=== PATIENT | male | born 1980 | race Caucasian/White ===

== ENCOUNTER 2017-10-14 20:51 | Emergency (ER) | payer BC ==
[~2017-10-14] VITALS: Ht 180.3 cm; Wt 68.3 kg
[2017-10-14 20:58] VITALS: TEMP 36.7; Ht 180.3 cm; Wt 68.3 kg
[2017-10-14] MEDS ORDERED: CYCLOBENZAPRINE HCL 10 MG TAB PO STA (21:38)
[2017-10-14] MEDS ORDERED: OXYCODONE HCL IR 5 MG TAB (IMMEDIATE RELEASE) PO STA (21:38)
--- NOTE | 2017-10-14 22:28 | DIAGNOSTIC IMAGING REPORT ---
LUMBAR SPINE 5 VIEWS HISTORY: Lower back midline tenderness, eval fx, disc herniation COMPARISON: None. FINDINGS: There is no fracture. No subluxation. Mild levoscoliosis of the lumbar spine. The sacrum is intact. Surgical clips are seen throughout the abdomen. L5 is demonstrated to be a transitional vertebra with partial sacralization and a hypoplastic L5-S1 disc space. There are also hypoplastic T12 ribs.. Minimal anterior wedging at T11 is likely within the range normal limits. IMPRESSION: No fracture or subluxation within the lumbar spine. Electronically signed by: Venancio Magallon M.D. 10/14/2017 10:26 PM Dictated Date/Time: 10/14/2017 10:24 PM
--- NOTE | 2017-10-14 22:51 | EMERGENCY ROOM VISIT NOTE ---
ED Visit Note First contact with patient: 21:06 CHIEF COMPLAINT: Low back pain HISTORY OF PRESENT ILLNESS: This is a 37-year-old male who presents to the emergency department with complaint of low back pain. The patient states he has had chronic back pain for at least 3 years and has been seen by a spine surgeon in the past for injections and physical therapy. He states that he has had increased pain in his back for the past one month, the pain came on gradually, it is now constant and worse with movements, and he has pain that radiates into his right leg with tingling for the past month. He rates the pain as 8/10. He has been taking Tylenol without relief. He states he is unable to take any NSAIDs due to having only one kidney. Denies any bowel or bladder difficulties. There has been no leg numbness or weakness. No recent direct trauma. No vomiting or abdominal pain. No fevers or chills. Patient states that he has been seen by a business applications specialist in [place] in the past and has had spinal injections as well as physical therapy. He does note that he has an appointment with his PCP tomorrow and has also need an appointment with orthopedic spine to get established here in 2 weeks. REVIEW OF SYSTEMS: A complete 10 point review of systems was reviewed with the patient with pertinent positives and negatives as per history of present illness. All else were negative. PMH: Chronic back pain. 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 He is otherwise healthy with no significant medical or surgical history. SOCIAL HISTORY: Patient lives at home. Current every day smoker. He denies alcohol use and illicit drug use, denies IV drug abuse. PHYSICAL EXAM: Vital Signs: Reviewed Nurse's notes. CONSTITUTIONAL: Pleasant and cooperative. No acute distress, but appears uncomfortable and in pain throughout exam. Slow to move. HEENT: Normocephalic, atraumatic. Pupils equal, round and reactive to light, EOMI. TMs normal. Pharynx normal. NECK: Supple, full active range of motion without discomfort. RESPIRATORY: Clear to auscultation bilaterally with no wheezing, crackles, rhonchi or stridor. Equal expansion bilaterally. CARDIOVASCULAR: Regular rate and rhythm with no murmurs, rubs or gallops. Normal peripheral perfusion. No edema. GASTROINTESTINAL: Soft, nontender, nondistended. No palpable masses or HSM. Bowel sounds present in all quadrants. BACK: Tenderness to palpation of the spinous processes of the lumbar vertebrae , L1 through L5, as well as bilateral paraspinous muscle tenderness in the lumbar area. LEGS: Normal strength of both lower extremities including dorsi- flexion and plantar flexion of the feet. Positive right straight leg raising, normal and symmetrical knee and ankle reflexes. MUSCULOSKELETAL: Full range of motion of all joints without discomfort. INTEGUMENTARY: No rash or other significant dermatologic conditions noted. NEUROLOGIC: Alert and oriented X 4 with normal affect. Normal speech. No focal neurologic deficits noted. IMAGING: LUMBAR SPINE 5 VIEWS HISTORY: Lower back midline tenderness, eval fx, disc herniation COMPARISON: None. FINDINGS: There is no fracture. No subluxation. Mild levoscoliosis of the lumbar spine. The sacrum is intact. Surgical clips are seen throughout the abdomen. L5 is demonstrated to be a transitional vertebra with partial sacralization and a hypoplastic L5-S1 disc space. There are also hypoplastic T12 ribs.. Minimal anterior wedging at T11 is likely within the range normal limits. IMPRESSION: No fracture or subluxation within the lumbar spine. EMERGENCY DEPARTMENT COURSE: I examined the patient. Differential diagnosis includes lumbar strain/sprain, lumbar radiculopathy, sciatica, disc herniation, muscle spasm, lumbar vertebral fracture, subluxation, cauda equina syndrome, among others. There are no concerning red flags on patient's history or exam for cauda equina. X-ray of the lumbar spine was performed given patient's progressive worsening of chronic back pain, this shows no acute fracture or subluxation. Patient was treated with oral oxycodone and Flexeril, he reports good improvement in his pain.. Rx for Medrol Dosepak (as patient is unable to take NSAIDs) and Flexeril were provided to the patient. Patient states that he has an appointment with his primary care provider tomorrow, I encouraged him to keep this appointment. He also states he has an appointment to establish care with an orthopedic spine surgeon in 2 weeks, he was encouraged to keep this appointment as well. Patient was given strict return precautions should his symptoms worsen, he verbalized understanding. Patient was discharged home in stable condition and ambulatory. Current/Historical Medications Scheduled Cyclobenzaprine Hcl (Flexeril), 10 MG PO TID Methylprednisolone (Medrol Dosepak), 0 PO DAILY Vital Signs Date Time Temp Pulse Resp B/P (MAP) Pulse Ox O2 Delivery O2 Flow Rate FiO2 10/14/17 23:22 64 20 105/71 98 10/14/17 20:58 36.7 71 20 129/88 97 Room Air Medications Administered Medications (Trade) Dose Ordered Sig/Valentina Route Start Time Stop Time Status Last Admin Dose Admin Oxycodone HCl (Roxicodone Immediate Rel Tab) 5 mg NOW STAT PO 10/14/17 21:38 10/14/17 21:40 DC 10/14/17 22:22 5 MG Cyclobenzaprine HCl (Flexeril Tab) 10 mg NOW STAT PO 10/14/17 21:38 10/14/17 21:40 DC 10/14/17 22:21 10 MG Departure Information Impression Primary Impression: Sciatica Additional Impression: Lumbar back pain Dispostion Home / Self-Care Condition GOOD Prescriptions Methylprednisolone (MEDROL DOSEPAK) 4 Mg Balbir 0 PO DAILY, #1 PKT Prov: Belle Mogran, [employer] AD[employer]ISTRATOR 10/14/17 Cyclobenzaprine Hcl (FLEXERIL) 10 Mg Tab 10 MG PO TID for 5 Days, #15 TAB Prov: Belle Morgan [employer] ADMINISTRATOR 10/14/17 Referrals Thiago Zee M.D. (PCP) Patient Instructions ED Back Care Tips, ED Low Back Pain Injury, ED Sciatica, [facility] Additional Instructions Take it easy for the next few days, no strenuous activity, heavy lifting, or bending/twisting motions, to allow your back to rest. Alternate heat and ice for comfort. After heat, you may do gentle stretching and massage to the low back. Medrol Dosepak as prescribed. This is to reduce inflammation in your back that is causing your pain. Flexeril muscle relaxer as prescribed, as needed for muscle tightness and spasms. This may make you drowsy. Do not drive or drink alcohol while taking. You may take Tylenol 1000 mg every 8 hours as needed for pain. Not more than 3000 mg a 24 hours. Keep your appointment tomorrow with your PCP tomorrow to follow up for further management. Keep your scheduled appointment with orthopedics as well. You may benefit from physical therapy. Please return to the ER if any problems with bowel or bladder function, numbness in your groin, high fevers, severe abdominal pain or worsening back pain, or if loss of feeling/movement of legs. Work Instructions Return To Work: 2 days Problem Qualifiers Primary Impression: Sciatica Laterality: right Qualified Codes: M54.31 - Sciatica, right side
[2017-10-14] MEDS ORDERED: METH4PAK PO (23:10)
[2017-10-14] MEDS ORDERED: CYCL10TA6 PO (23:10)
[2017-10-14 23:22] VITALS: BP 105/71; PULSE 64; O2SAT 98
== END 2017-10-14 23:23 | disposition home or self-care (01) ==
LOC: C.EDB 20:53 → C.EDD 23:23
DX: M54.31 Sciatica, right side (principal); M54.5 Low back pain; F17.200 Nicotine dependence, unspecified, uncomplicated